=== PATIENT | male | born 1950 | race Asian ===

== ENCOUNTER 2019-12-18 09:30 | Outpatient (CLI) | payer MEDICARE, OTHER, SELFPAY ==
--- NOTE | ~2019-12-18 | XR_ITS ---
XR hip LT min 2V DATE: 12/18/2019 09:59 INDICATION: Left hip pain. Sciatica. TECHNIQUE: AP, lateral and crosstable lateral views of left hip COMPARISON: None FINDINGS: No fracture or dislocation, avascular necrosis or bone destruction. Left hip joint space is relatively preserved. The pubic symphysis and included left sacroiliac joint are intact. IMPRESSION: No significant abnormality Reviewed, dictated and finalized at location A. IMPRESSION: No significant abnormality
--- NOTE | ~2019-12-18 | XR_ITS ---
XR lumbar spine 2-3V DATE: 12/18/2019 09:59 INDICATION: Left hip pain. Sciatica. TECHNIQUE: AP, lateral, coned lateral lumbosacral views COMPARISON: None FINDINGS: Diffuse idiopathic skeletal hyperostosis of the lower thoracic and lumbar spine. Lumbar and lumbosacral interspaces are well preserved. No fracture or bone destruction or spondylolisthesis. The included lower thoracic and lumbar pedicles are intact. The sacroiliac joints appear normal. IMPRESSION: Diffuse idiopathic skeletal hyperostosis Reviewed, dictated and finalized at location A.
[2019-12-18 10:32] LABS: Hematocrit 43.7 % (42.0-52.0); Hemoglobin 14.8 g/dL (14.0-18.0); Mean Corpuscular HGB Conc 33.9 g/dl (32-36); Mean Corpuscular Hemoglobin 29.3 pg (26-34); Mean Corpuscular Volume 86.5 fl (80-100); Mean Platelet Volume 9.6 fl (7.4-10.4); Platelet Count Result 351 k/mm3 (150-375); Red Blood Count 5.05 M/mm3 (4.6-6.20); Red Cell Distribution Width 13.7 % (11.5-14.5); White Blood Count 7.6 K/mm3 (4.5-10.0)
[2019-12-18 10:39] LABS: Add Urine Microscopic? NO; Appearance Urine Clear (Clear); Bilirubin Urine Negative (Negative); Blood Urine Negative (Negative); Color Urine Yellow (Yellow); Glucose Urine UA Negative (Negative); Ketones Urine Negative (Negative); Leukocyte Esterase Ur Negative LEU/UL (NEGATIVE); Nitrate Urine Negative (Negative); Protein Urine Negative (Negative); Specific Grav Ur 1.021 (1.001-1.035); Urobilinogen Urine Negative mg/dL (<2.0)
[2019-12-18 10:44] LABS: Alanine Aminotransferase 33 U/L (4-50); Albumin Level 4.4 g/dL (3.5-5.1); Alkaline Phosphatase 72 U/L (38-126); Aspartate Amino Transferase 35 U/L (17-59); Bilirubin,Total 0.7 mg/dL (0.2-1.3); Blood Urea Nitrogen 13 mg/dL (9-20); Carbon Dioxide 27 mmol/L (22-30); Chloride 105 mmol/L (98-107); Cholesterol 234 mg/dL (0-200); Estimated Glomerular Filt Rate > 60; Glucose 110 mg/dL (75-110); HDL Direct 59 mg/dL; Potassium 4.1 mmol/L (3.4-5.0); Sodium 139 mmol/L (137-145); Triglycerides 81 mg/dL (<150)
[2019-12-18 10:46] LABS: Hemoglobin A1C 6.1 % (<5.7)
[2019-12-18 10:55] LABS: LDL Cholesterol Direct 151 mg/dL
[2019-12-18 11:12] LABS: Free T4 Free Thyroxine 0.85 ng/mL (0.78-2.19); Vitamin D 25 Hydroxy 33.3 ng/mL
[2019-12-18 11:14] LABS: Prostate Specific Antigen 2.8 ng/mL (< OR = 4.0)
[2019-12-18 11:26] LABS: Creatinine Urine 238.6 mg/dL
[2019-12-18 11:29] LABS: MALB Creatinine Ratio 7.1 mg/g (0-30)
== END 2019-12-18 09:31 | disposition home or self-care (01) ==
PROVIDERS: PCP Emergency Medicine; Visit Provider Emergency Medicine
DX: M25.552 Pain in left hip (principal); M54.5 Low back pain; E11.9 Type 2 diabetes mellitus without complications; E55.9 Vitamin D deficiency, unspecified; E78.5 Hyperlipidemia, unspecified; Z12.5 Encounter for screening for malignant neoplasm of prostate; M48.16 Ankylosing hyperostosis [Forestier], lumbar region
CPT/HCPCS: 36415; 72100; 73502; 80053; 80061; 81003; 82043; 82306; 83036; 84153; 84439; 84443; 85027

== ENCOUNTER 2020-04-24 13:33 | Outpatient (CLI) | payer MEDICARE, OTHER, SELFPAY ==
--- NOTE | ~2020-04-24 | DEXA_ITS ---
Bone Density Report Name: Shari Freeman Age: 69 Sex: Male Ethnicity: Date of : 1950 Indication: osteoporosis Referring Provider: Galen Schwartz Study: Bone densitometry was performed. Exam Date: April 24, 2020 Accession number: [id number] Bone Density: Region BMD T-score Z-score Classification AP Spine (L1-L4) 1.337 2.2 3.1 Normal Femoral Neck (Left) 1.011 0.6 1.8 Normal Total Hip (Left) 1.231 1.3 2.0 Normal Total Hip Bilateral Avg 1.225 1.3 2.0 Normal Femoral Neck (Right) 0.999 0.5 1.7 Normal Total Hip (Right) 1.219 1.2 1.9 Normal World Health Organization criteria for BMD impression classify patients as: Normal (T-score at or above -1.0), Osteopenia (T-score between -1.0 and -2.5), or Osteoporosis (T-score at or below -2.5). 10-year Fracture Risk: FRAX not reported because: All T-scores for Spine Total, Hip Total, Femoral Neck at or above -1.0 Clinical Information Provided by Patient: Patient maximum height was 66 Does not regularly consume dairy products Impression: The patient has normal bone mass. Discussion: BONE DENSITY IS ABOVE THE MINIMUM DESIRABLE LEVEL AT ALL SKELETAL SITES TESTED. This patient?s bone mineral density is above the minimum desirable level (T-score -1.0 or better) at all sites measured. The patient should follow a healthful lifestyle (good nutrition with adequate calcium and vitamin D, and appropriate weight-bearing exercise). Follow-Up: Consider repeating this study in 5 years or sooner if there is some new clinical indication. Reported by: JARETT on 04/24/2020 2:12:00 PM. Reviewed, dictated and finalized at location Jamie LEI
== END 2020-04-24 13:34 | disposition home or self-care (01) ==
PROVIDERS: PCP Emergency Medicine; Visit Provider Emergency Medicine
DX: M81.0 Age-related osteoporosis without current pathological fracture (principal)
CPT/HCPCS: 77080